=== PATIENT | female | born 1990 | race Caucasian/White ===

== ENCOUNTER 2018-02-13 09:34 | Emergency (ER) | payer SELFPAY, OTHER | END 2018-02-13 13:01 | disposition left against medical advice (07) | LOC: FTE 13:01 | DX: Z53.21 Procedure and treatment not carried out due to patient leaving prior to being seen by health care provider (principal) ==

== ENCOUNTER 2018-02-16 11:00 | Emergency (ER) | payer SELFPAY | END 2018-02-16 11:24 | disposition left against medical advice (07) | LOC: E/R 11:24 | DX: Z53.21 Procedure and treatment not carried out due to patient leaving prior to being seen by health care provider (principal) ==

== ENCOUNTER 2018-10-21 15:54 | Emergency (ER) | payer OTHER ==
[2018-10-21 17:46] LABS: URINE BLOOD (Dip) POC Trace-intact (NEGATIVE); URINE GLUCOSE (Dip) POC Negative (NEGATIVE); URINE KETONES (Dip) POC Negative (NEGATIVE); URINE LEUKOCYTE EST (Dip) POC 1+ (NEGATIVE); URINE NITRITE (Dip) POC Negative (NEGATIVE); URINE TOTAL PROTEIN POC 1+ (NEGATIVE)
== END 2018-10-21 18:16 | disposition home or self-care (01) ==
LOC: FTE 15:54
DX: O23.41 Unspecified infection of urinary tract in pregnancy, first trimester (principal); Z3A.12 12 weeks gestation of pregnancy
CPT/HCPCS: 81003; 87086; 99283

== ENCOUNTER 2018-10-24 21:13 | Emergency (ER) | payer OTHER ==
[2018-10-24] MEDS: KETOROLAC 60 MG INJ IM (21:55)
[2018-10-24] MEDS: morphine 10 MG INJ IM (23:12)
[2018-10-25] MEDS ORDERED: ONDANSETRON (ODT) 4 MG TAB ODT (00:44)
[2018-10-25] MEDS: ONDANSETRON (ODT) 4 MG TAB ODT (00:45)
== END 2018-10-25 01:00 | disposition home or self-care (01) ==
LOC: E/R 10-25 01:00
DX: O03.4 Incomplete spontaneous abortion without complication (principal)
CPT/HCPCS: 96372; 99284-25

== ENCOUNTER 2018-10-28 07:25 | Observation (INO) | payer OTHER ==
[2018-10-28] MEDS: ONDANSETRON 4 MG INJ IV ×2 (07:54→09:33)
[2018-10-28] MEDS: SOD CHLORIDE 0.9% 1,000 ML IV (07:54)
[2018-10-28] MEDS: morphine 4 MG/ML VIAL IV (07:55)
[2018-10-28 07:57] LABS: ADD MAN DIFF? NO
[2018-10-28 08:02] LABS: WHITE BLOOD COUNT 7.6 10^3/ul (4.8-10.8)
[2018-10-28 08:02] LABS: BASOPHILS % 0.4 % (0.0-2.0); EOSINOPHILS # 0.2 10^3/ul (0.0-0.5); EOSINOPHILS % 2.2 % (0.0-7.0); HEMATOCRIT 22.8 % (37.0-47.0); HEMOGLOBIN 7.5 g/dl (12.0-16.0); LYMPHOCYTES # 2.6 10^3/ul (0.8-2.9); LYMPHOCYTES % 33.4 % (15.0-51.0); MEAN CORPUSCULAR HEMOGLOBIN 28.8 pg (29.0-33.0); MEAN CORPUSCULAR HGB CONC 32.9 g/dl (32.0-37.0); MEAN CORPUSCULAR VOLUME 87.7 fl (82.0-101.0); MEAN PLATELET VOLUME 12.1 fl (7.4-10.4); MONOCYTE # 0.4 10^3/ul (0.3-0.9); MONOCYTES % 5.6 % (0.0-11.0); NEUTROPHIL # 4.4 10^3/ul (1.6-7.5); PLATELET COUNT 169 10^3/UL (140-415); RED CELL DISTRIBUTION WIDTH 14.3 % (11.5-14.5)
[2018-10-28 08:20] LABS: ALANINE AMINOTRANSFERASE 67 IU/L (13-69); ALBUMIN 3.3 g/dl (3.3-4.9); ALBUMIN/GLOBULIN RATIO 1.32; ALKALINE PHOSPHATASE 39 IU/L (42-121); ANION GAP 8 (5-13); ASPARTATE AMINO TRANSFERASE 30 IU/L (15-46); BLOOD UREA NITROGEN 9 mg/dl (7-20); CALCIUM 8.3 mg/dl (8.4-10.2); CARBON DIOXIDE 25 mmol/L (21-31); CHLORIDE 106 mmol/L (97-110); CREATININE 0.47 mg/dl (0.44-1.00); Estimated GFR > 60 mL/min (>60); GLUCOSE 99 mg/dl (70-220); POTASSIUM 3.5 mmol/L (3.5-5.1); SODIUM 139 mmol/L (135-144); TOTAL PROTEIN 5.8 g/dl (6.1-8.1)
[2018-10-28] MEDS: HYDROmorphONE 1 MG/ML SYG IV (09:33)
[2018-10-28 12:57] LABS: HEMATOCRIT 20.7 % (37.0-47.0)
[2018-10-28 13:16] LABS: HEMOGLOBIN 6.9 g/dl (12.0-16.0)
[2018-10-28 16:02] LABS: IMMEDIATE SPIN CROSSMATCH 1 2
[2018-10-28] MEDS ORDERED: FENTAnyl 50 MCG/ML VIAL ×2 (17:00→17:11)
[2018-10-28] MEDS ORDERED: ROPIVACAINE 0.5 % 30 ML VIAL (17:11)
[2018-10-28] MEDS ORDERED: DIPHENHYDRAMINE 50 MG INJ IV (17:30)
[2018-10-28] MEDS ORDERED: FENTAnyl 50 MCG/ML VIAL IV ×2 (17:30)
[2018-10-28] MEDS ORDERED: METOCLOPRAMIDE 10 MG INJ IV (17:30)
[2018-10-28] MEDS ORDERED: HYDROmorphONE 1 MG/5 ML IV SYRINGE IV ×2 (17:30)
[2018-10-28] MEDS ORDERED: ONDANSETRON 4 MG INJ IV (17:30)
[2018-10-28] MEDS ORDERED: MEPERIDINE 25 MG INJ IV (17:30)
[2018-10-28] MEDS ORDERED: CEFAZOLIN 1 GM INJ (17:33)
[2018-10-28] MEDS ORDERED: SUGAMMADEX SODIUM 200 MG/2 ML VIAL IV (17:33)
[2018-10-28] MEDS ORDERED: ROCURONIUM 50 MG INJ (17:33)
[2018-10-28] MEDS ORDERED: PROPOFOL 20 ML (17:33)
[2018-10-28] MEDS ORDERED: SUCCINYLCHOLINE CHLORIDE 100 MG/5 ML SYG IV (17:33)
[2018-10-28] MEDS ORDERED: LIDOCAINE 100 MG SYRINGE (17:33)
[2018-10-28] MEDS: HYDROmorphONE 1 MG/5 ML IV SYRINGE IV (18:18)
[2018-10-28] MEDS: OXYCODONE/ACETAMINOPHEN (10/325) TAB PO (21:41)
[2018-10-28] MEDS ORDERED: ACETAMINOPHEN 325 MG TAB PO (22:30)
== END 2018-10-29 00:45 | disposition home or self-care (01) ==
LOC: E/R 07:25 → PP2 09:35
DX: O03.4 Incomplete spontaneous abortion without complication (principal)
CPT/HCPCS: 36415; 36430; 76801; 80053; 84702; 85014; 85018; 85025; 86850; 86900; 86901; 86920; 88305; 96374; 96375; 96376; 99217; 99291-25; G0378

== ENCOUNTER 2019-01-01 16:19 | Emergency (ER) | payer OTHER ==
[2019-01-01] MEDS: KETOROLAC 30 MG INJ IM (17:46)
[2019-01-01 17:47] LABS: ADD MAN DIFF? NO
[2019-01-01 17:49] LABS: BASOPHIL # 0.1 10^3/ul (0.0-0.1); BASOPHILS % 0.8 % (0.0-2.0); EOSINOPHILS # 0.1 10^3/ul (0.0-0.5); EOSINOPHILS % 1.2 % (0.0-7.0); HEMATOCRIT 40.1 % (37.0-47.0); HEMOGLOBIN 12.4 g/dl (12.0-16.0); LYMPHOCYTES % 23.6 % (15.0-51.0); MEAN CORPUSCULAR HEMOGLOBIN 24.3 pg (29.0-33.0); MEAN CORPUSCULAR HGB CONC 30.9 g/dl (32.0-37.0); MEAN CORPUSCULAR VOLUME 78.6 fl (82.0-101.0); MEAN PLATELET VOLUME 11.5 fl (7.4-10.4); MONOCYTE # 0.3 10^3/ul (0.3-0.9); MONOCYTES % 3.8 % (0.0-11.0); NEUTROPHIL # 6.1 10^3/ul (1.6-7.5); NEUTROPHILS % 70.5 % (39.0-77.0); PLATELET COUNT 302 10^3/UL (140-415); RED CELL DISTRIBUTION WIDTH 16.6 % (11.5-14.5)
[2019-01-01 17:49] LABS: WHITE BLOOD COUNT 8.6 10^3/ul (4.8-10.8)
[2019-01-01 18:09] LABS: ALANINE AMINOTRANSFERASE 24 IU/L (13-69); ALBUMIN 5.3 g/dl (3.3-4.9); ALBUMIN/GLOBULIN RATIO 1.15; ALKALINE PHOSPHATASE 74 IU/L (42-121); ANION GAP 14 (5-13); ASPARTATE AMINO TRANSFERASE 29 IU/L (15-46); BILIRUBIN,INDIRECT 0.1 mg/dl (0-1.1); BILIRUBIN,TOTAL 0.1 mg/dl (0.2-1.3); BLOOD UREA NITROGEN 16 mg/dl (7-20); CALCIUM 10.2 mg/dl (8.4-10.2); CARBON DIOXIDE 26 mmol/L (21-31); CHLORIDE 101 mmol/L (97-110); CREATININE 0.69 mg/dl (0.44-1.00); Estimated GFR > 60 mL/min (>60); GLUCOSE 97 mg/dl (70-220); POTASSIUM 3.9 mmol/L (3.5-5.1); SODIUM 141 mmol/L (135-144); TOTAL PROTEIN 9.9 g/dl (6.1-8.1)
== END 2019-01-01 18:50 | disposition home or self-care (01) ==
LOC: FTE 16:19
DX: R51 Headache (principal)
CPT/HCPCS: 70450; 80053; 81025; 85025; 96372; 99285-25

== ENCOUNTER 2019-03-17 12:53 | Emergency (ER) | payer OTHER ==
[2019-03-17 16:19] LABS: ADD MAN DIFF? NO
[2019-03-17 16:23] LABS: WHITE BLOOD COUNT 6.1 10^3/ul (4.8-10.8)
[2019-03-17 16:23] LABS: ABNORMAL IP MESSAGE 1; BASOPHIL # 0.1 10^3/ul (0.0-0.1); BASOPHILS % 0.8 % (0.0-2.0); EOSINOPHILS # 0.4 10^3/ul (0.0-0.5); EOSINOPHILS % 6.1 % (0.0-7.0); HEMOGLOBIN 12.2 g/dl (12.0-16.0); LYMPHOCYTES # 2.7 10^3/ul (0.8-2.9); LYMPHOCYTES % 44.9 % (15.0-51.0); MEAN CORPUSCULAR HEMOGLOBIN 24.8 pg (29.0-33.0); MEAN CORPUSCULAR HGB CONC 31.3 g/dl (32.0-37.0); MEAN CORPUSCULAR VOLUME 79.3 fl (82.0-101.0); MONOCYTE # 0.4 10^3/ul (0.3-0.9); MONOCYTES % 6.4 % (0.0-11.0); NEUTROPHIL # 2.5 10^3/ul (1.6-7.5); NEUTROPHILS % 41.6 % (39.0-77.0); PLATELET COUNT 246 10^3/UL (140-415); RED BLOOD COUNT 4.92 10^6/ul (4.20-5.40); RED CELL DISTRIBUTION WIDTH 22.7 % (11.5-14.5)
[2019-03-17 16:39] LABS: POSITIVE DIFF @See below
[2019-03-17 16:45] LABS: ALANINE AMINOTRANSFERASE 48 IU/L (13-69); ALBUMIN 4.5 g/dl (3.3-4.9); ALKALINE PHOSPHATASE 67 IU/L (42-121); ANION GAP 12 (5-13); ASPARTATE AMINO TRANSFERASE 27 IU/L (15-46); BILIRUBIN,INDIRECT 0.3 mg/dl (0-1.1); BILIRUBIN,TOTAL 0.3 mg/dl (0.2-1.3); BLOOD UREA NITROGEN 12 mg/dl (7-20); CALCIUM 9.4 mg/dl (8.4-10.2); CARBON DIOXIDE 26 mmol/L (21-31); CHLORIDE 103 mmol/L (97-110); CREATININE 0.55 mg/dl (0.44-1.00); Estimated GFR > 60 mL/min (>60); GLUCOSE 80 mg/dl (70-220); POTASSIUM 4.2 mmol/L (3.5-5.1); SODIUM 141 mmol/L (135-144); TOTAL PROTEIN 7.7 g/dl (6.1-8.1)
[2019-03-17 17:02] LABS: FREE THYROXINE INDEX (Calc) 2.02 ug/ml (0.65-3.89); T3 UPTAKE 30.6 % (23.5-40.5); T4 (THYROXINE) 6.6 ug/dl (5.5-11.0)
[2019-03-17 17:16] LABS: THYROID STIMULATING HORMONE 0.603 MIU/L (0.465-4.680)
== END 2019-03-17 20:13 | disposition home or self-care (01) ==
LOC: FTE 12:53
DX: R53.83 Other fatigue (principal); Z00.00 Encounter for general adult medical examination without abnormal findings
CPT/HCPCS: 80053; 81025; 84436; 84443; 84479; 85025; 99283